=== PATIENT | female | born 1995 ===

== ENCOUNTER 2021-09-09 05:57 | Inpatient (IN) | payer OTHER, BC ==
[2021-09-09] MEDS ORDERED: Methylergonovine 0.2 MG/1 ML Amp IM PRN (06:34)
[2021-09-09] MEDS ORDERED: Lidocaine 1% 50 ML MDV INJECT PRN (06:34)
[2021-09-09] MEDS ORDERED: Carboprost Tromethamine 250 MCG/1 ML Amp IM PRN (06:34)
[2021-09-09] MEDS ORDERED: Sodium Chloride 0.9% 10 ML Syringe FLUSH PRN (06:34)
[2021-09-09] MEDS ORDERED: Sodium Chloride 0.9% 20 ML SDV IV PRN (06:34)
[2021-09-09] MEDS ORDERED: Butorphanol 1 MG/ML SDV IVPUSH PRN (06:34)
[2021-09-09] MEDS ORDERED: Misoprostol 200 MCG Tab PO PRN (06:34)
[2021-09-09] MEDS ORDERED: Water For Irrigation,Sterile 1,000 ML Container IRR PRN (06:34)
[2021-09-09] MEDS ORDERED: Sodium Chloride 0.9% 2.5 ML Syringe FLUSH PRN (06:34)
[2021-09-09] MEDS ORDERED: Tranexamic Acid 1,000 MG in Sodium Chloride 0.9% 100 ML IV PRN (06:34)
[2021-09-09] MEDS ORDERED: Ondansetron 4 MG/2 ML SDV IVPUSH PRN (06:34)
[2021-09-09] MEDS ORDERED: Oxytocin/0.9 % Sodium Chloride 30 UNIT/500 ML BAG IV SCH (06:45)
[2021-09-09] MEDS ORDERED: Ampicillin 2 GM in Sodium Chloride 0.9% 100 ML IV ONE (07:00)
[2021-09-09] MEDS: Lactated Ringers 1,000 ML IV SCH ×4 (07:19→16:46)
[2021-09-09] MEDS ORDERED: ePHEDrine 50 MG/ML SDV IVPUSH PRN ×2 (07:21)
[2021-09-09] MEDS ORDERED: Ropivacaine HCl/PF 400 MG in Premix Bag 1 BAG EPIDUR SCH (07:30)
[2021-09-09] MEDS: Ampicillin 1 GM in Sodium Chloride 0.9% 50 ML IV SCH ×2 (11:37→15:52)
[2021-09-09] MEDS ORDERED: Phenylephrine HCl In 0.9% NaCl 1 MG/10 ML Vial IVPUSH PRN (15:15)
[2021-09-09] MEDS ORDERED: oxyCODONE 5 MG Tab PO PRN (18:35)
[2021-09-09] MEDS ORDERED: Aluminum Hydroxide/Magnesium Hydroxide/Simethicone XS Susp 30 ML Cup PO PRN (18:35)
[2021-09-09] MEDS ORDERED: Bisacodyl 10 MG Supp RECTAL PRN (18:35)
[2021-09-09] MEDS ORDERED: Ibuprofen 400 MG Tab PO PRN (18:35)
[2021-09-09] MEDS ORDERED: Benzocaine/Menthol 20%-0.5% Spray 78 GM Cannister TOP PRN (18:35)
[2021-09-09] MEDS ORDERED: Witch Hazel Medicated Pads 40/Jar TOP PRN (18:35)
[2021-09-09] MEDS ORDERED: Docusate Sodium 100 MG Cap PO PRN (18:35)
[2021-09-09] MEDS ORDERED: Acetaminophen 500 MG Tab PO PRN (18:35)
[2021-09-09] MEDS ORDERED: Lanolin 100% Cream 7 GM Tube TOP PRN (18:35)
[2021-09-09] MEDS: Ibuprofen 800 MG Tab PO PRN (21:07)
[2021-09-09] MEDS: Acetaminophen 500 MG Tab PO PRN (22:04)
[2021-09-10] MEDS: Ibuprofen 800 MG Tab PO PRN ×3 (03:02→21:03)
[2021-09-10] MEDS: Acetaminophen 500 MG Tab PO PRN ×3 (05:50→16:01)
== END 2021-09-10 21:48 | disposition home or self-care (01) | DRG 807 ==
LOC: MW.OBCHECK 05:57 → MW.OB 05:58 → MW.OBCHECK 06:34 → MW.OB 06:34 → OBSVTOIN 18:05 → MW.OB 22:38
PROVIDERS: ADMIT Obstetrics & Gynecology; ATTEND Obstetrics & Gynecology
PROC: 10E0XZZ Delivery of Products of Conception, External Approach (ICD-10-PCS; principal; 2021-09-09)
PROC: 0KQM0ZZ Repair Perineum Muscle, Open Approach (ICD-10-PCS; 2021-09-09)
PROC: 10907ZC Drainage of Amniotic Fluid, Therapeutic from Products of Conception, Via Natural or Artificial Opening (ICD-10-PCS; 2021-09-09)
PROC: 3E0R3BZ Introduction of Anesthetic Agent into Spinal Canal, Percutaneous Approach (ICD-10-PCS; 2021-09-09)
PROC: 00HU33Z Insertion of Infusion Device into Spinal Canal, Percutaneous Approach (ICD-10-PCS; 2021-09-09)
DX: O99.824 Streptococcus B carrier state complicating childbirth (principal); Z37.0 Single live birth; Z3A.40 40 weeks gestation of pregnancy; O99.344 Other mental disorders complicating childbirth; F41.8 Other specified anxiety disorders; O48.0 Post-term pregnancy; O69.81X0 Labor and delivery complicated by cord around neck, without compression, not applicable or unspecified; O13.4 Gestational [pregnancy-induced] hypertension without significant proteinuria, complicating childbirth; O70.1 Second degree perineal laceration during delivery; Z20.822 Contact with and (suspected) exposure to COVID-19
CPT/HCPCS: 01967; 36415; 51702; 59025; 59409; 82803; 85014; 85018; 85027; 86592; 86850; 86900; 86901; A9270-GY; J0290; J0595; J2590; J3490; J7120; U0002